=== PATIENT | female | born 1960 | race Caucasian/White ===

== ENCOUNTER 2016-11-05 08:55 | Emergency (ER) | payer OTHER ==
[~2016-11-05] VITALS: Ht 162.6 cm; Wt 70.6 kg
[~2016-11-05 08:55] MED LIST: AURALGAN14.8 ML BOTH EARS; BACTRIM,SEPT1 TABLET PO; MOTRIN800 MG PO; PREDNISONE20 MG PO; VICODIN 5-3001 EACH PO; VICODIN,LORT1 TABLET PO; XANAX0.25 MG PO; ZITHROMAX Z-PA250 MG PO
[2016-11-05] MEDS ORDERED: ERYTHROMYC1 APPLICAT RIGHT EYE (09:26)
[2016-11-05 09:33] VITALS: BP 144/89
== END 2016-11-05 09:46 | disposition home or self-care (01) ==
LOC: EME 08:55
DX: H10.9 Unspecified conjunctivitis (principal); F17.200 Nicotine dependence, unspecified, uncomplicated; Z88.0 Allergy status to penicillin
CPT/HCPCS: 99281; 99283

== ENCOUNTER 2017-11-04 16:21 | Emergency (ER) | payer OTHER ==
[~2017-11-04] VITALS: Ht 162.6 cm; Wt 73.3 kg
[~2017-11-04 16:21] MED LIST changes: +ERYTHROMYC1 APPLICAT RIGHT EYE
[2017-11-04 16:28] VITALS: BP 154/72
== END 2017-11-04 17:15 | disposition home or self-care (01) ==
LOC: EME 16:21
DX: S20.362A Insect bite (nonvenomous) of left front wall of thorax, initial encounter (principal); W57.XXXA Bitten or stung by nonvenomous insect and other nonvenomous arthropods, initial encounter; Z88.0 Allergy status to penicillin; Z88.1 Allergy status to other antibiotic agents
CPT/HCPCS: 99281; 99283